=== PATIENT | female | born 1965 | race Caucasian/White ===

== ENCOUNTER 2016-06-13 18:04 | Emergency (ER) | payer OTHER ==
[~2016-06-13] VITALS: Ht 172.7 cm; Wt 109.8 kg
[~2016-06-13 18:04] MED LIST: 'PARAFON FORTE500 M1 PO; ACCUNEB 0.1.25 MG/3 INH; ADVAIR 250/501 EA INH; ALBUTEROL0.09 MG/A2 INH; AMOXICILLIN500 MG PO; ANTIVERT/2525 MG PO; ATARAX25 MG PO; AUGMENTIN 500500 M1 PO; AUGMENTIN 875 M1 TAB PO; BIAXIN500 MG PO; CELEXA20 MG PO; CELEXA40 MG PO; CIPRO250 MG PO; CIPROFLOXACIN500 MG PO; CLEOCIN150 MG PO; CLINDAMYCIN HC300 MG PO; COL-RITE100 M1 PO; CORDROL20 MG PO; ELIMITE5% TP; GEODON40 MG PO; HYDROCODONE BIT1 T11 PO; LISINOPRIL40 MG PO; MACROBID100 M1 PO; MEDROL DOSEPAK4 MG PO; MOTRIN600 MG PO; MOTRIN800 MG PO; NAPROSYN500 MG PO; NORVASC5 MG PO; PREDNICOT20 MG PO; PREDNISONE10 MG PO; PREDNISONE20 MG PO; PRILOSEC40 MG PO; PYRIDIUM200 MG PO; ROBITUSSIN AC 110 ML PO; SINGULAIR10 MG PO; SYNTHROID,LEV200 MCG PO; SYNTHROID0.15 MG PO; TESSALON PERLE200 MG PO; TOPAMAX25 M3 PO; TOPAMAX50 MG PO; TRAMADOL HCL50 MG PO; TRAZODONE100 MG PO; ULTRAM50 MG PO; VIBRAMYCIN100 MG PO; VICODIN 5/500 505 MG PO; VICODIN 500 MG-1 TAB PO; VITAMIN D32000 UNI1 PO; Ventolin 02.5 MG/3 M INH; Wellbutrin Xl150 MG PO; XANAX1 MG PO; ZITHROMAX250 MG PO
[2016-06-13 18:20] VITALS: BP 132/88
[2016-06-13] MEDS ORDERED: CYCLOBENZAPRINE5 M3 PO (20:09)
== END 2016-06-13 20:20 | disposition home or self-care (01) ==
LOC: ED 18:04
DX: M54.5 Low back pain (principal); B35.9 Dermatophytosis, unspecified; F17.200 Nicotine dependence, unspecified, uncomplicated; Z98.51 Tubal ligation status; Z98.890 Other specified postprocedural states; Z79.899 Other long term (current) drug therapy; Z88.2 Allergy status to sulfonamides; Z88.8 Allergy status to other drugs, medicaments and biological substances

== ENCOUNTER 2017-07-17 15:35 | Emergency (ER) | payer OTHER ==
[~2017-07-17] VITALS: Ht 172.7 cm; Wt 109.8 kg
[~2017-07-17 15:35] MED LIST changes: +CYCLOBENZAPRINE5 M3 PO
[2017-07-17 15:39] VITALS: BP 124/80
[2017-07-17 16:25] LABS: BILIRUBIN 1+ (NEGATIVE); BLOOD NEGATIVE (NEGATIVE); CLARITY SL CLOUDY (CLEAR); COLOR YELLOW (YELLOW); GLUCOSE NEGATIVE (NEGATIVE); KETONE TRACE (NEGATIVE); LEUKO ESTERASE TRACE (NEGATIVE); NITRITE NEGATIVE (NEGATIVE); SPECIFIC GRAVITY >= 1.030 (1.005-1.030)
[2017-07-17 16:43] LABS: MUCOUS 1+; WBC 16-20 wbc/hpf (0-5)
[2017-07-17] MEDS ORDERED: AMINOPHYLLIN200 MG PO (17:02)
[2017-07-17] MEDS ORDERED: Motrin,Rufen800 MG PO (17:02)
[2017-07-17] MEDS ORDERED: CYCLOBENZAPRINE5 M3 PO (17:02)
[2017-07-17] MEDS ORDERED: DELTASONE20 M1 PO (17:02)
== END 2017-07-17 17:08 | disposition home or self-care (01) ==
LOC: ED 15:35
PROVIDERS: Physician Assistant
DX: M54.16 Radiculopathy, lumbar region (principal); N39.0 Urinary tract infection, site not specified; Z98.51 Tubal ligation status; Z98.890 Other specified postprocedural states; Z79.899 Other long term (current) drug therapy; Z88.2 Allergy status to sulfonamides; Z88.6 Allergy status to analgesic agent

== ENCOUNTER 2017-08-02 15:10 | Inpatient (IN) | payer OTHER ==
[~2017-08-02] VITALS: Ht 172.7 cm; Wt 99.1 kg
[~2017-08-02 15:10] MED LIST changes: +AMINOPHYLLIN200 MG PO; +DELTASONE20 M1 PO; +Motrin,Rufen800 MG PO; +OMEPRAZOLE D/R20 MG PO; -PRILOSEC40 MG PO; +SINGULAIR10 M1 PO; -SINGULAIR10 MG PO; +SYNTHROID,LEV175 MCG PO; -SYNTHROID0.15 MG PO; +TOPAMAX100 M1 PO; -TOPAMAX50 MG PO; -TRAZODONE100 MG PO; +TRAZODONE150 MG PO
[2017-08-02 15:39] VITALS: BP 120/75
[2017-08-02] MEDS ORDERED: BUPROPION75 MG PO (15:44)
[2017-08-02] MEDS ORDERED: ASPIR LOW81 MG PO (15:44)
[2017-08-02] MEDS ORDERED: SPIRIVA18 MCG PO (15:45)
[2017-08-02 16:30] LABS: BASO % 0.4 % (0.0-1.0); EOS # 0.3 10*3/uL (0.0-0.4); EOS % 3.3 % (1.0-4.0); HEMATOCRIT 34.6 % (37.0-47.0); HEMOGLOBIN 10.8 g/dl (12.0-16.0); LYMPH # 1.9 10*3/uL (1.3-4.4); LYMPH % 21.5 % (27.0-41.0); MEAN CELL VOLUME 83.2 fl (81.0-99.0); MEAN CORPUSCULAR HGB CONC 31.2 g/dl (33.0-37.0); MEAN PLATELET VOLUME 10.5 fl (9.6-12.3); MONO # 0.5 10*3/uL (0.1-1.0); NEUT # 6.1 10*3/uL (2.3-7.9); NEUT % 68.4 % (47.0-73.0); PLATELET COUNT AUTOMATED 245 10*3/uL (130-400); RED BLOOD COUNT 4.16 10*6/uL (4.10-5.10); RED CELL DISTRI WIDTH 14.7 % (0-14.5)
[2017-08-02 16:45] LABS: ALBUMIN 3.6 gm/dl (3.1-4.5); ALKALINE PHOSPHATASE 123 U/L (45-117); BUN 12 mg/dl (7-24); CHLORIDE 108 mmol/L (98-107); CREATININE 0.89 mg/dL (0.55-1.02); POTASSIUM 3.4 mmol/L (3.5-5.1); SGOT/AST 12 IU/L (3-35); SGPT/ALT 17 U/L (12-78); SODIUM 140 mmol/L (136-145); TOTAL PROTEIN 6.9 gm/dL (6.4-8.2)
[2017-08-02 17:00] VITALS: BP 118/72
[2017-08-02] MEDS ORDERED: LIPITOR20 MG PO (17:23)
[2017-08-02] MEDS ORDERED: CYMBALTA60 MG PO (17:27)
[2017-08-02 17:53] VITALS: BP 120/75
[2017-08-02 20:00] VITALS: BP 119/75
[2017-08-03] VITALS: BP 104/86
[2017-08-03 03:54] LABS: BILIRUBIN NEGATIVE (NEGATIVE); BLOOD TRACE-INTACT (NEGATIVE); CLARITY CLEAR (CLEAR); COLOR YELLOW (YELLOW); GLUCOSE NEGATIVE (NEGATIVE); KETONE NEGATIVE (NEGATIVE); LEUKO ESTERASE 1+ (NEGATIVE); NITRITE NEGATIVE (NEGATIVE); SPECIFIC GRAVITY <= 1.005 (1.005-1.030)
[2017-08-03 04:09] LABS: BACTERIA TRACE; EPITHELIAL CELLS 0-2; RBC 0-2 rbc/hpf (0-2); WBC 16-20 wbc/hpf (0-5)
[2017-08-03 06:42] LABS: BASO % 0.6 % (0.0-1.0); EOS # 0.4 10*3/uL (0.0-0.4); EOS % 5.3 % (1.0-4.0); HEMATOCRIT 31.6 % (37.0-47.0); HEMOGLOBIN 9.9 g/dl (12.0-16.0); LYMPH # 2.2 10*3/uL (1.3-4.4); LYMPH % 30.2 % (27.0-41.0); MEAN CELL VOLUME 83.8 fl (81.0-99.0); MEAN CORPUSCULAR HGB 26.3 pg (27.0-31.0); MEAN CORPUSCULAR HGB CONC 31.3 g/dl (33.0-37.0); MONO # 0.4 10*3/uL (0.1-1.0); NEUT # 4.2 10*3/uL (2.3-7.9); NEUT % 57.6 % (47.0-73.0); PLATELET COUNT AUTOMATED 217 10*3/uL (130-400); RED BLOOD COUNT 3.77 10*6/uL (4.10-5.10); RED CELL DISTRI WIDTH 14.6 % (0-14.5); WHITE BLOOD COUNT 7.2 10*3/uL (4.8-10.8)
[2017-08-03 07:05] LABS: INTERNATIONAL NORM RATIO 0.9 (2.0-3.5)
[2017-08-03 07:09] LABS: CHLORIDE 109 mmol/L (98-107); POTASSIUM 3.6 mmol/L (3.5-5.1); SODIUM 142 mmol/L (136-145)
[2017-08-03 07:25] LABS: BUN 10 mg/dl (7-24); CHOLESTEROL 130 mg/dL (<200); CREATININE 0.74 mg/dL (0.55-1.02); HDL CHOLESTEROL 30 mg/dl (40-60); LDL CHOLESTEROL 76 mg/dL (9-159); THYROID STIM HORMONE (HS) 0.277 uIU/ml (0.358-4.75); TRIGLYCERIDES 122 mg/dl (<150); VLDL CHOLESTEROL 24 mg/dL (6-40)
[2017-08-03 08:00] VITALS: BP 102/66
[2017-08-03 12:00] VITALS: BP 111/70
[2017-08-03 16:00] VITALS: BP 111/59
[2017-08-03 20:00] VITALS: BP 109/57
[2017-08-04] VITALS: BP 121/82
[2017-08-04 08:00] VITALS: BP 125/67
[2017-08-04] MEDS ORDERED: Synthroid,Lev150 MCG PO (11:22)
[2017-08-04] MEDS ORDERED: NORCO 5-325 TA1 EACH PO (11:25)
[2017-08-04] MEDS ORDERED: DOXYCYCLINE100 M3 PO (11:25)
[2017-08-04 12:00] VITALS: BP 136/79
== END 2017-08-04 13:45 | disposition home or self-care (01) | DRG 603 ==
LOC: ED 15:10 → EDHOLD 16:15 → 5E 16:15
PROVIDERS: Emergency Medicine; Internal Medicine
DX: L03.311 Cellulitis of abdominal wall (principal); E87.8 Other disorders of electrolyte and fluid balance, not elsewhere classified; D64.9 Anemia, unspecified; R73.9 Hyperglycemia, unspecified; E66.9 Obesity, unspecified; F31.9 Bipolar disorder, unspecified; J44.9 Chronic obstructive pulmonary disease, unspecified; I10 Essential (primary) hypertension; E03.9 Hypothyroidism, unspecified; Z87.440 Personal history of urinary (tract) infections; Z90.89 Acquired absence of other organs; Z90.49 Acquired absence of other specified parts of digestive tract; Z98.51 Tubal ligation status; Z88.2 Allergy status to sulfonamides; Z88.8 Allergy status to other drugs, medicaments and biological substances; Z79.899 Other long term (current) drug therapy; Z79.82 Long term (current) use of aspirin; Z87.891 Personal history of nicotine dependence; Z80.9 Family history of malignant neoplasm, unspecified; Z68.33 Body mass index [BMI] 33.0-33.9, adult

== ENCOUNTER 2018-08-09 12:24 | Emergency (ER) | payer OTHER ==
[~2018-08-09] VITALS: Ht 243.8 cm; Wt 109.8 kg
--- NOTE | ~2018-08-09 | EKG ---
[place], [place] ELECTROCARDIOGRAM REPORT NAME: FLAKITO TRAVIS UNIT #: [id number] ROOM: DOCTOR: EPIPHANY DRAFT REPORT BIRTHDATE: [birth year] [facility] Test Date: 2018-08-09 Test Time: 13:54:39 Pat Name: FLAKITO TRAVIS Department: Room: Gender: F Senior Payroll Administrator: : [id number] Requested By: KIARRA HERNANDEZ Order Number: [id number] Reading MD: Barbara Gomez MD Measurements Intervals [place] Rate: 79 P: 24 AR: 186 QRS: 22 QRSD: 99 T: 48 QT: 402 QTc: 461 Interpretive Statements Sinus rhythm Low voltage, precordial leads No previous ECG available for comparison Electronically Signed On 08-12-2018 9:36:53 PDT by Barbara Gomez MD CM:EKGRPT:ELECTROCARDIOGRAM REPORT [id number] KIARRA BONDS DRAFT REPORT KIARRA HERNANDEZ MD
[~2018-08-09 12:24] MED LIST changes: +ASPIR LOW81 MG PO; +BUPROPION75 MG PO; +CYMBALTA60 MG PO; +DOXYCYCLINE100 M3 PO; +LIPITOR20 MG PO; +NORCO 5-325 TA1 EACH PO; +SPIRIVA18 MCG PO; +Synthroid,Lev150 MCG PO
[2018-08-09 12:27] VITALS: BP 122/79
[2018-08-09 13:04] LABS: BASO % 0.4 % (0.0-1.0); EOS # 0.2 10*3/uL (0.0-0.4); EOS % 1.4 % (1.0-4.0); HEMATOCRIT 35.1 % (37.0-47.0); HEMOGLOBIN 11.2 g/dl (12.0-16.0); LYMPH # 2.2 10*3/uL (1.3-4.4); LYMPH % 21.5 % (27.0-41.0); MEAN CELL VOLUME 84.8 fl (81.0-99.0); MEAN CORPUSCULAR HGB 27.1 pg (27.0-31.0); MEAN CORPUSCULAR HGB CONC 31.9 g/dl (33.0-37.0); MEAN PLATELET VOLUME 10.3 fl (9.6-12.3); MONO # 0.8 10*3/uL (0.1-1.0); MONO % 8.1 % (3.0-9.0); NEUT % 67.6 % (47.0-73.0); PLATELET COUNT AUTOMATED 218 10*3/uL (130-400); RED BLOOD COUNT 4.14 10*6/uL (4.10-5.10); RED CELL DISTRI WIDTH 15.8 % (0-14.5); WHITE BLOOD COUNT 10.4 10*3/uL (4.8-10.8)
[2018-08-09 13:22] LABS: ACT PARTIAL THROMBO TIME 28.9 SECONDS (20.0-32.1); ALBUMIN 3.6 gm/dl (3.1-4.5); ALKALINE PHOSPHATASE 114 U/L (45-117); BUN 9 mg/dl (7-24); CHLORIDE 109 mmol/L (98-107); CREATININE 0.99 mg/dL (0.55-1.02); POTASSIUM 3.6 mmol/L (3.5-5.1); SGOT/AST 5 IU/L (3-35); SGPT/ALT 19 U/L (12-78); SODIUM 141 mmol/L (136-145); TOTAL PROTEIN 7.1 gm/dL (6.4-8.2)
[2018-08-09 13:27] LABS: TROPONIN I < 0.015 ng/ml (<0.045)
[2018-08-09] MEDS ORDERED: VIBRAMYCIN100 MG PO (15:26)
[2018-08-09] MEDS ORDERED: PREDNISONE50 MG PO (15:26)
== END 2018-08-09 15:32 | disposition home or self-care (01) ==
LOC: ED 12:24
PROVIDERS: Emergency Medicine
DX: J44.1 Chronic obstructive pulmonary disease with (acute) exacerbation (principal); H92.09 Otalgia, unspecified ear; I10 Essential (primary) hypertension; E03.9 Hypothyroidism, unspecified; E66.9 Obesity, unspecified; F17.200 Nicotine dependence, unspecified, uncomplicated; Z88.2 Allergy status to sulfonamides; Z88.8 Allergy status to other drugs, medicaments and biological substances; Z79.899 Other long term (current) drug therapy; Z79.82 Long term (current) use of aspirin

== ENCOUNTER 2020-01-18 12:01 | Emergency (ER) | payer OTHER ==
[~2020-01-18] VITALS: Wt 111.1 kg
[~2020-01-18 12:01] MED LIST changes: +PREDNISONE50 MG PO
[2020-01-18 12:11] VITALS: BP 144/91
== END 2020-01-18 14:36 | disposition home or self-care (01) ==
LOC: ED 12:01
DX: M79.672 Pain in left foot (principal); Z88.2 Allergy status to sulfonamides; Z88.8 Allergy status to other drugs, medicaments and biological substances; Z79.899 Other long term (current) drug therapy; Z90.49 Acquired absence of other specified parts of digestive tract

== ENCOUNTER 2020-06-23 16:04 | Emergency (ER) | payer OTHER, MEDICAID ==
[~2020-06-23] VITALS: Wt 111.1 kg
[2020-06-23 16:14] VITALS: BP 142/76
[2020-06-23] MEDS ORDERED: Motrin,Rufen800 MG PO (18:40)
== END 2020-06-23 18:51 | disposition home or self-care (01) ==
LOC: ED 16:04
DX: M25.462 Effusion, left knee (principal); F17.200 Nicotine dependence, unspecified, uncomplicated; Z88.2 Allergy status to sulfonamides; Z88.8 Allergy status to other drugs, medicaments and biological substances; Z79.899 Other long term (current) drug therapy; Z79.2 Long term (current) use of antibiotics; Z79.82 Long term (current) use of aspirin; Z98.890 Other specified postprocedural states; Z90.49 Acquired absence of other specified parts of digestive tract; Z98.51 Tubal ligation status

== ENCOUNTER 2024-11-20 15:27 | Emergency (ER) | payer OTHER, MEDICAID ==
[~2024-11-20] VITALS: Ht 172.7 cm; Wt 93.4 kg
[2024-11-20 15:35] VITALS: BP 137/110
[2024-11-20] MEDS ORDERED: AMOX-CLAV 875-1 EACH PO (17:40)
[2024-11-20] MEDS ORDERED: Amoxicillin/Clavulanate Pota 875 MG TAB PO ONE (17:45)
== END 2024-11-20 17:39 | disposition home or self-care (01) ==
LOC: ED 15:27
DX: H66.91 Otitis media, unspecified, right ear (principal); B34.9 Viral infection, unspecified; J44.9 Chronic obstructive pulmonary disease, unspecified; F31.9 Bipolar disorder, unspecified; I10 Essential (primary) hypertension; E03.9 Hypothyroidism, unspecified; E66.9 Obesity, unspecified; G43.909 Migraine, unspecified, not intractable, without status migrainosus; F17.200 Nicotine dependence, unspecified, uncomplicated; Z88.2 Allergy status to sulfonamides; Z88.1 Allergy status to other antibiotic agents; Z90.49 Acquired absence of other specified parts of digestive tract; Z98.890 Other specified postprocedural states; Z98.51 Tubal ligation status; Z96.653 Presence of artificial knee joint, bilateral